=== PATIENT | female | born 1950 | race Caucasian/White ===

== ENCOUNTER 2018-08-21 13:35 | Outpatient (CLI) | payer OTHER | END 2018-08-21 13:36 | disposition critical access hospital (66) | LOC: EMS 13:35 | PROVIDERS: ATTEND Surgery | DX: M54.5 Low back pain (principal); R20.2 Paresthesia of skin; W18.39XA Other fall on same level, initial encounter; Y92.008 Other place in unspecified non-institutional (private) residence as the place of occurrence of the external cause | CPT/HCPCS: A0425; A0429 ==

== ENCOUNTER 2018-08-21 13:57 | Emergency (ER) | payer OTHER ==
[2018-08-21 14:05] VITALS: BP 140/69
--- NOTE | 2018-08-21 14:31 | ED Physician Documentation ---
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 She had been smoking marijuana and felt that she was "too stoned." She was walking into the house to lay down when she became dizzy, lost her balance, and fell backwards, hitting her head on concrete surface. Her friend who witnessed the event noticed that she did not lose consciousness. The patient reports mild occipital headache. She denies nausea or vomiting, neck pain, numbness or weakness. She has not attempted to stand since the incident occurred. Review of Systems Constitutional: reports: Other ("dizzy"). denies: Fever Eyes: denies: Decreased vision Ears: denies: Tinnitus/ringing Nose: denies: Congestion Throat: denies: Sore throat Cardiac: denies: Chest pain / pressure Respiratory: denies: Dyspnea, Cough GI: denies: Abdominal Pain, Nausea, Vomiting : denies: Dysuria Skin: denies: Laceration (s) Musculoskeletal: reports: Other (coccygeal pain). denies: Neck pain, Extremity pain Neurologic: reports: Syncope, Headache (Mild occipital headache), Head injury. denies: Focal weakness, Numbness, Confused PD PAST MEDICAL HISTORY - Past Medical History Cardiovascular: Hypertension Endocrine/Autoimmune: HyPOthyroidism - Present Medications Home Medications: Ambulatory Orders Medication Instructions Recorded Confirmed Bupropion HCl [Bupropion Xl] 150 mg DAILY 08/21/18 08/21/18 Escitalopram [Lexapro] 20 mg DAILY 08/21/18 08/21/18 Gabapentin 900 mg PO QPM 08/21/18 08/21/18 Levothyroxine Sodium 50 mcg PO DAILY 08/21/18 08/21/18 Losartan/Hydrochlorothiazide 1 tab DAILY 08/21/18 08/21/18 [Losartan-Hctz 100-25 mg Tab] Pravastatin Sodium 40 mg QPM 08/21/18 08/21/18 - Allergies Allergies/Adverse Reactions: Allergies Allergy/AdvReac Type Severity Reaction Status Date / Time No Known Drug Allergies Allergy Verified 08/21/18 14:02 - Social History Substance Use and Type: Marijuana Additional Social History: Visiting from [place]. PD ED PE NORMAL - Vitals Vital signs reviewed: Yes (Borderline systolic hypertension) - General General: Alert and oriented X 3, Well developed/nourished - HEENT HEENT: PERRL, EOMI, Pharynx benign - Neck Neck: No bony TTP - Cardiac Cardiac: RRR - Respiratory Respiratory: No respiratory distress, Clear bilaterally - Abdomen Abdomen: Soft, Non tender - Derm Derm: No rash - Extremities Extremities: No tenderness to palpate, Normal ROM s pain, No edema, No calf tenderness / cord - Neuro Neuro: Alert and oriented X 3, No motor deficit, No sensory deficit, Normal speech Results - Vitals Vitals: Vital Signs - 24 hr 08/21/18 14:00 Temperature 36.4 C L Heart Rate 79 Respiratory 20 Rate Blood Pressure 140/69 H O2 Saturation 100 Oxygen O2 Source Room air - Rads (name of study) Neck CT Radiology: Prelim report reviewed, EMP read contemporaneously, See rad report (No acute fracture line is present in the cervical vertebral bodies. Degenerative disc disease, osteophyte formation, uncovertebral joint spurring, and facet hypertrophy at multiple levels discussed above, greatest at C5-6 and C6-7. No perched facet.) Head CT Radiology: Prelim report reviewed, EMP read contemporaneously, See rad report (Right maxillary sinus air-fluid level, bleeding into the sinus versus preexistent acute sinusitis. Otherwise negative study.) PD MEDICAL DECISION MAKING - ED course Complexity details: reviewed results, re-evaluated patient, considered differential, d/w patient, d/w family ED course: The patient's presentation is significant for a fall with closed head injury while intoxicated on marijuana. Head CT and cervical spine CT revealed no evidence of acute intracranial or cervical spine abnormality. No other significant injuries are detected on physical examination. On reexamination, the patient remained dizzy when sitting up at the edge the bed. Treatment included administration of normal saline 1 L IV. She felt subjectively much improved after this treatment, and demonstrated ability to ambulate without lightheadedness or ataxia. 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 Departure - Departure Disposition: 01 Home, Self Care Clinical Impression: Syncope and collapse Closed head injury Qualifiers: Encounter type: initial encounter Qualified Code(s): S09.90XA - Unspecified injury of head, initial encounter Marijuana intoxication Qualifiers: Complication of substance-induced condition: with unspecified complication Qualified Code(s): F12.929 - Cannabis use, unspecified with intoxication, unspecified Condition: Stable Instructions: ED Head Injury Closed Comments: Drink plenty of fluids. You can use ibuprofen, up to 800 mg 3 times daily for anti-inflammatory effect. Apply ice pack to the sore areas intermittently for the next 2 or 3 days. Return to the emergency department if you develop increasing headache, persistent vomiting, or otherwise worsening symptoms. Discharge Date/Time: 08/21/18 17:06
--- NOTE | 2018-08-21 15:12 | CT Report ---
Reason: Fall with head injury Procedure Date: 08/21/2018 Accession Number: [id number] / [id number] Procedure: CT - HEAD WO CPT Code: FULL RESULT: EXAM: CT HEAD EXAM DATE: 08/21/2018 02:51 PM. CLINICAL HISTORY: Fall, pain. COMPARISON: None. TECHNIQUE: Multiaxial CT images were obtained from the foramen magnum to the vertex. Reformats: Sagittal and coronal. IV contrast: None. In accordance with CT protocol optimization, one or more of the following dose reduction techniques were utilized for this exam: automated exposure control, adjustment of mA and/or KV based on patient size, or use of iterative reconstructive technique. FINDINGS: Parenchyma: No intraparenchymal hemorrhage. No evidence of mass, midline shift, or CT findings of infarction. Grier-white differentiation is distinct. Extraaxial Spaces: Normal for age. No subdural or epidural collections. Ventricles: Normal in size and position. Sinuses and Orbits: Air-fluid level in right maxillary sinus. Otherwise clear. Bones: Unremarkable. Other: None. IMPRESSION: 1. Right maxillary sinus air-fluid level, bleeding into the sinus versus preexistent acute sinusitis. 2. Otherwise negative study. [facility]
--- NOTE | 2018-08-21 15:21 | CT Report ---
Reason: fall with head injury Procedure Date: 08/21/2018 Accession Number: [id number] / [id number] Procedure: CT - CERVICAL SPINE WO CPT Code: FULL RESULT: EXAM: CT CERVICAL SPINE WITHOUT CONTRAST DATE: 08/21/2018 02:51 PM. HISTORY: Fall with head injury. COMPARISONS: None available. TECHNIQUE: Thin-section axial images were acquired of the cervical spine without contrast. Post-processing: Coronal and sagittal reformats. Other: None. In accordance with CT protocol optimization, one or more of the following dose reduction techniques were utilized for this exam: automated exposure control, adjustment of mA and/or KV based on patient size, or use of iterative reconstructive technique. FINDINGS: No perched facet is present. No fracture line is present in the cervical vertebral bodies. No spinous process fracture is evident. Uncovertebral joint spurring is seen throughout most of the cervical spine. There is some motion of the study which limits it. Severe loss of disk space height is seen at C5-C6 and C6-C7. Anterior and posterior protrusion of disk and osteophyte is seen at these levels. There is mild bilateral foraminal stenosis at C6-C7. There is mild to moderate right and moderate left foraminal stenosis at C5-C6. Central canal stenosis is present at C6-C7 and the central canal is at least borderline at C5-C6. C2-C3: No foraminal stenosis. Bilateral facet hypertrophy much greater on the left. C3-C4: Severe bilateral facet hypertrophy. A posterior protrusion of disk and osteophyte is present. Mild to moderate right and moderate left foraminal stenosis. C4-C5: Disk/osteophyte complex formation is seen involving the posterior lateral margin of the disk bilaterally. There is severe right facet hypertrophy. Moderate to severe right and mild left foraminal stenosis are present. C5-C6 and C6-C7: Discussed above. C7-T1: No foraminal stenosis. IMPRESSION: 1. No acute fracture line is present in the cervical vertebral bodies. 2. Degenerative disk disease, osteophyte formation, uncovertebral joint spurring, and facet hypertrophy are present at multiple levels and are discussed above. This is greatest at C5-C6 and C6-C7. 3. No perched facet. [facility]
[2018-08-21] MEDS ORDERED: SODIUM CHLORIDE 0.9% 1,000 ML IV ONE (15:37)
== END 2018-08-21 17:06 | disposition home or self-care (01) ==
LOC: ED 13:57
DX: R55 Syncope and collapse (principal); S09.90XA Unspecified injury of head, initial encounter; W01.198A Fall on same level from slipping, tripping and stumbling with subsequent striking against other object, initial encounter; Y93.01 Activity, walking, marching and hiking; Y92.008 Other place in unspecified non-institutional (private) residence as the place of occurrence of the external cause; F12.929 Cannabis use, unspecified with intoxication, unspecified; M50.30 Other cervical disc degeneration, unspecified cervical region; M48.02 Spinal stenosis, cervical region; M25.78 Osteophyte, vertebrae; I10 Essential (primary) hypertension; E03.9 Hypothyroidism, unspecified
CPT/HCPCS: 70450; 72125; 99284